=== PATIENT | male | born 1990 | race Caucasian/White ===

== ENCOUNTER 2017-06-19 23:34 | Emergency (ER) | payer OTHER ==
[~2017-06-19] VITALS: Ht 170.2 cm; Wt 72.5 kg
[~2017-06-19 23:34] MED LIST: DILA8TAB4 INJ
[2017-06-19 23:36] VITALS: BP 107/66; PULSE 84; RESP 16; TEMP 98.7; O2SAT 99
[2017-06-20] MEDS ORDERED: DICL75TA PO (00:13)
[2017-06-20] MEDS ORDERED: CYCL10TA PO (00:13)
[2017-06-20] MEDS ORDERED: CYCLOBENZAPRINE HCL 10 MG TAB PO ONE (00:15)
[2017-06-20] MEDS ORDERED: NAPROXEN 500 MG TAB PO ONE (00:15)
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
== END 2017-06-20 00:35 | disposition home or self-care (01) ==
LOC: NEPD 23:34
DX: M54.2 Cervicalgia (principal); M54.9 Dorsalgia, unspecified; F17.210 Nicotine dependence, cigarettes, uncomplicated; V43.02XA Car driver injured in collision with other type car in nontraffic accident, initial encounter; Y92.481 Parking lot as the place of occurrence of the external cause; Z79.899 Other long term (current) drug therapy
CPT/HCPCS: 99283